=== PATIENT | male | born 1990 | race Caucasian/White ===

== ENCOUNTER 2020-08-03 21:12 | Emergency (ER) | payer OTHER ==
[~2020-08-03] VITALS: Ht 180.3 cm; Wt 81.6 kg
[~2020-08-03 21:12] MED LIST: BUCALSEP SPRAY30 ML MM; DOLOGEN CAPLET1 EACH PO
== END 2020-08-04 00:03 | disposition home or self-care (01) ==
LOC: ER 21:12
DX: B34.9 Viral infection, unspecified (principal); Z03.818 Encounter for observation for suspected exposure to other biological agents ruled out

== ENCOUNTER 2020-08-06 14:42 | Emergency (ER) | payer OTHER ==
[~2020-08-06] VITALS: Ht 177.8 cm; Wt 79.4 kg
[2020-08-06] MEDS ORDERED: ACETAMINOPHEN650 MG PO (23:57)
== END 2020-08-07 00:15 | disposition home or self-care (01) ==
LOC: ER 14:42
DX: A90 Dengue fever [classical dengue] (principal); D69.3 Immune thrombocytopenic purpura; B34.9 Viral infection, unspecified; D72.818 Other decreased white blood cell count
CPT/HCPCS: 74160; Q9965